=== PATIENT | female | born 2000 | race African-American/Black ===

== ENCOUNTER 2018-03-11 23:20 | Emergency (ER) | payer OTHER ==
[~2018-03-11] VITALS: Ht 170.2 cm; Wt 89.8 kg
[2018-03-11 23:35] VITALS: BP 113/70
[2018-03-12] MEDS ORDERED: FLEXERIL PO (00:16)
[2018-03-12] MEDS ORDERED: IBUPROFEN 400400 M2 PO (00:16)
== END 2018-03-12 00:31 | disposition home or self-care (01) ==
LOC: ER 23:20
DX: M25.461 Effusion, right knee (principal); S60.511A Abrasion of right hand, initial encounter; M79.672 Pain in left foot; V89.2XXA Person injured in unspecified motor-vehicle accident, traffic, initial encounter; Y93.89 Activity, other specified; Y92.89 Other specified places as the place of occurrence of the external cause; Y99.8 Other external cause status